=== PATIENT | male | born 1980 | race Caucasian/White ===

== ENCOUNTER 2018-03-22 14:59 | Emergency (ER) | payer OTHER ==
--- NOTE | 2018-03-22 16:28 | XR ---
EXAMINATION TYPE: XR chest 2V DATE OF EXAM: 03/22/2018 COMPARISON: NONE HISTORY: Chest pain and swelling throat. TECHNIQUE: Frontal and lateral views of the chest are obtained. FINDINGS: There is no focal air space opacity, pleural effusion, or pneumothorax seen. The cardiac silhouette size is within normal limits. The osseous structures are intact. IMPRESSION: No acute cardiopulmonary process.
--- NOTE | 2018-03-22 17:03 | ED ---
General Adult HPI - General Chief complaint: ENT Stated complaint: sore throat Time Seen by Provider: 03/22/18 15:56 Source: patient, RN notes reviewed Mode of arrival: ambulatory Limitations: no limitations - History of Present Illness Initial comments: 38-year-old male presents to the emergency department for a chief complaint of cough and sore throat for one day. Patient states this started last night. Patient denies having asthma. Patient is not a smoker. Patient denies any shortness of breath or chest pain. Patient denies any fevers or chills at home. Patient denies any sick contacts. Patient was vaccinated that he knows of. Patient denies any congestion or ear pain. Patient has no other complaints at this time including shortness of breath, chest pain, abdominal pain, nausea or vomiting, headache, or visual changes. - Related Data Home Medications Medication Instructions Recorded Confirmed Paliperidone IM [Invega Sustenna] 156 mg IM Q30D 03/22/18 03/22/18 Previous Rx's Medication Instructions Recorded Benzonatate [Tessalon Perles] 100 mg PO TID PRN #15 capsule 03/22/18 Benzonatate [Tessalon Perles] 100 mg PO TID PRN #15 capsule 03/22/18 Allergies Allergy/AdvReac Type Severity Reaction Status Date / Time No Known Allergies Allergy Verified 03/22/18 16:16 Review of Systems ROS Statement: Those systems with pertinent positive or pertinent negative responses have been documented in the HPI. ROS Other: All systems not noted in ROS Statement are negative. Past Medical History Past Medical History: No Reported History History of Any Multi-Drug Resistant Organisms: None Reported Past Surgical History: No Surgical Hx Reported Past Psychological History: Anxiety, Bipolar, Depression, Schizoaffective Disorder Smoking Status: Current every day smoker Past Alcohol Use History: Rare Past Drug Use History: Marijuana General Exam Limitations: no limitations General appearance: alert, in no apparent distress Head exam: Present: atraumatic, normocephalic, normal inspection Eye exam: Present: normal appearance, PERRL, EOMI. Absent: scleral icterus, conjunctival injection, periorbital swelling, periorbital tenderness ENT exam: Present: normal exam, normal oropharynx (Non-erythematous throat. No exudates on tonsils.), mucous membranes moist, TM's normal bilaterally Neck exam: Present: normal inspection, full ROM. Absent: tenderness, meningismus, lymphadenopathy Respiratory exam: Present: normal lung sounds bilaterally. Absent: respiratory distress, wheezes, rales, rhonchi, stridor Cardiovascular Exam: Present: regular rate, normal rhythm, normal heart sounds. Absent: systolic murmur, diastolic murmur, rubs, gallop, clicks Course Vital Signs 03/22/18 03/22/18 15:08 17:08 Temperature 98.4 F 98.2 F Pulse Rate 80 67 Respiratory 20 16 Rate Blood Pressure 121/75 115/70 O2 Sat by Pulse 100 100 Oximetry Medical Decision Making - Medical Decision Making 38-year-old male process the emergency department for chief complaint of cough and sore throat times one day. No fevers at home. Vitals are within normal limits in the emergency department. Patient has not tried anything over-the- counter for this. On exam patient's throat is nonerythematous. Lungs are clear bilaterally. Patient appears comfortable sitting on the edge of the bed. X-ray demonstrates no acute cardiopulmonary process. Strep was negative. Patient will be discharged home with Tessalon Perles for cough. He will take Motrin or Tylenol for throat pain. He will return to the emergency department if he has any worsening symptoms including shortness of breath or high fevers. Otherwise he will follow-up with primary care in 1-2 days. - Lab Data Lab Results 03/22/18 Range/Units 16:16 Group A Strep Rapid Negative (Negative) Disposition Clinical Impression: Upper respiratory infection Disposition: HOME SELF-CARE Condition: Good Instructions: Upper Respiratory Infection (ED) Additional Instructions: Please take Tessalon Perles as directed for cough. Please take Motrin or Tylenol for pain in the throat. You may take [id number] cold medicine as needed. Return to the emergency department if symptoms worsen or you have shortness of breath or high fevers. Otherwise follow-up with primary care in 1- 2 days Prescriptions: Benzonatate [Tessalon Perles] 100 mg PO TID PRN #15 capsule PRN Reason: Cough Benzonatate [Tessalon Perles] 100 mg PO TID PRN #15 capsule PRN Reason: Cough Is patient prescribed a controlled substance at d/c from ED?: No Referrals: [facility],Clinic [Primary Care Provider] - 1-2 days Time of Disposition: 17:00
[2018-03-22 17:09] VITALS: BP 115/70; PULSE 67; RESP 16; TEMP 98.2
== END 2018-03-22 17:08 | disposition home or self-care (01) ==
LOC: EC 14:59
DX: J06.9 Acute upper respiratory infection, unspecified (principal); F25.9 Schizoaffective disorder, unspecified; F17.200 Nicotine dependence, unspecified, uncomplicated; Z79.899 Other long term (current) drug therapy
CPT/HCPCS: 71046; 87081; 87430; 99283

== ENCOUNTER 2019-05-14 17:47 | Emergency (ER) | payer OTHER ==
[2019-05-14 17:52] VITALS: BP 113/73; PULSE 72; RESP 18; TEMP 97.9
--- NOTE | 2019-05-14 18:13 | ED ---
General Adult HPI - General Chief complaint: Dental/Oral Stated complaint: Dental pain Time Seen by Provider: 05/14/19 17:54 Source: patient, RN notes reviewed, old records reviewed Mode of arrival: ambulatory Limitations: no limitations - History of Present Illness Initial comments: 39 y/o Male patient comes to ED with complaint of dental pain. Patient reports that he has had 1 day of dental pain on his 30th 2 days. Patient denies any sensation of 2 transient. Patient does report that he has mildly poor dentition has not seen a dentist in many years. Patient denies any other complaints at this time. Patient denies any past medical history any regular medications. Systemic: Pt denies fatigue, fever/chills, rash. Pt denies weakness, night swea ts, weight loss. Neuro: Pt denies headache, visual disturbances, syncope or pre-syncope. HEENT: Pt denies ocular discharge or irritation, otalgia, rhinorrhea, pharyngitis or notable lymphadenopathy. Cardiopulmonary: Pt denies chest pain, SOB, heart palpitations, dyspnea on exertion. Abdominal/GI: Pt denies abdominal pain, n/v/d. : Pt denies dysuria, burning w/ urination, frequency/urgency. Denies new onset urinary or bowel incontinence. MSK: Pt denies myalgia, loss of strength or function in extremities. Neuro: Pt denies new onset weakness, paresthesias. - Related Data Home Medications Medication Instructions Recorded Confirmed Paliperidone IM [Invega Sustenna] 156 mg IM Q30D 03/22/18 03/22/18 Previous Rx's Medication Instructions Recorded Benzonatate [Tessalon Perles] 100 mg PO TID PRN #15 capsule 03/22/18 Benzonatate [Tessalon Perles] 100 mg PO TID PRN #15 capsule 03/22/18 Amoxicillin/Potassium Clav 1 each PO Q12HR 7 Days #14 tab 05/14/19 [Augmentin 875-125 Tablet] Allergies Allergy/AdvReac Type Severity Reaction Status Date / Time No Known Allergies Allergy Verified 05/14/19 17:52 Review of Systems ROS Statement: Those systems with pertinent positive or pertinent negative responses have been documented in the HPI. ROS Other: All systems not noted in ROS Statement are negative. Past Medical History Past Medical History: No Reported History History of Any Multi-Drug Resistant Organisms: None Reported Past Surgical History: No Surgical Hx Reported Past Psychological History: Anxiety, Bipolar, Depression, Schizoaffective Disorder Smoking Status: Current every day smoker Past Alcohol Use History: Rare Past Drug Use History: Marijuana General Exam - General Exam Comments Initial Comments: Constitutional: NAD, AOX3, Pt has pleasant affect. HEENT: NC/AT, trachea midline, neck supple, no lymphadenopathy. Posterior pharynx non erythematous, without exudates. External ears appear normal, without discharge. Mucous membranes moist. Eyes PERRLA, EOM intact. There is no scleral icterus. No pallor noted. Mild amount of erythema around 30th tooth. Mild tender to palpation. No drainage, no fluctuance, no drainable abscess. Cardiopulmonary: RRR, no murmurs, rubs or gallops, no JVD noted. Lungs CTAB in anterior and posterior hernandez. No peripheral edema. Abdominal exam: Abdomen soft and non-distended. Abdomen non-tender to palpation in all 4 quadrants. Bowel sounds active in LLQ. No hepatosplenomegaly. No ecchymosis Neuro: CN II-XII grossly intact. No nuchal rigidity. No raccon eyes, no sena sign, no hemotympanum. No cervical spinal tenderness. MSK: No posterior calf tenderness bilaterally, homans sign negative bilaterally. Posterior tibialis and radial pulse +2 bilaterally. Sensation intact in upper and lower extremities. Full active ROM in upper and lower extremities, 5/5 stregnth. Limitations: no limitations Course Vital Signs 05/14/19 17:49 Temperature 97.9 F Pulse Rate 72 Respiratory 18 Rate Blood Pressure 113/73 O2 Sat by Pulse 99 Oximetry Medical Decision Making - Medical Decision Making 39 y/o Patient denies ED for dental pain. Patient physical exam displayed mild erythema around 30th tooth. Vital signs stable, afebrile. Patient was discharged with antibiotics, follow-up with dentist in 1-2 days. Patient returned irritation worsens in anyway. Case discussed with Dr. Reyez. Disposition Clinical Impression: Pain, dental Disposition: HOME SELF-CARE Condition: Stable Instructions (If sedation given, give patient instructions): Toothache (ED) Additional Instructions: Patient to adhere to previously discussed treatment plan and will take medication(s) as directed. Patient to follow up with PCP in 1-2 days. Patient to return to ED if symptoms do not improve. Take antibiotics as prescribed, f/u with PCP and dentist tomorrow. Return to ER if condition worsens. Prescriptions: Amoxicillin/Potassium Clav [Augmentin 875-125 Tablet] 1 each PO Q12HR 7 Days #14 tab Is patient prescribed a controlled substance at d/c from ED?: No Referrals: [facility],Clinic [Primary Care Provider] - 1-2 days Ellyn Mcclendon DDS [STAFF PHYSICIAN] - 1-2 days Evan Jacobs DDS [STAFF PHYSICIAN] - 1-2 days Deja Montes DDS [STAFF PHYSICIAN] - 1-2 days
== END 2019-05-14 18:28 | disposition home or self-care (01) ==
LOC: EC 17:47
DX: K08.89 Other specified disorders of teeth and supporting structures (principal); F25.9 Schizoaffective disorder, unspecified; F17.200 Nicotine dependence, unspecified, uncomplicated; Z79.899 Other long term (current) drug therapy
CPT/HCPCS: 99283